=== PATIENT | female | born 1970 | race American Indian/Alaskan Native ===

== ENCOUNTER 2018-08-07 21:20 | Emergency (ER) | payer OTHER ==
--- NOTE | 2018-08-07 21:32 | Event Note ---
ED Screening Note Date of service: 08/07/18 Time: 21:27 ED Screening Note: 47 y/o female with a history of bipolar, diabetes. Has been off of her psych meds for 3-4 week. This initial assessment/diagnostic orders/clinical plan/treatment(s) is/are subject to change based on patients health status, clinical progression and re- assessment by fellow clinical providers in the ED. Further treatment and workup at subsequent clinical providers discretion. Patient/guardian urged not to elope from the ED as their condition may be serious if not clinically assessed and managed. Initial orders include:
[2018-08-07 21:59] LABS: Basophils % (Auto) 0.6 % (0.0-1.8); Eosinophils # (Auto) 0.3 K/mm3 (0.0-0.4); Eosinophils % (Auto) 4.6 % (0.0-4.3); Hematocrit 39.3 % (30.3-42.9); Hemoglobin 13.5 gm/dl (10.1-14.3); Lymphocytes # (Auto) 2.1 K/mm3 (1.2-5.4); Lymphocytes % (Auto) 36.8 % (13.4-35.0); Mean Corpuscular HGB Conc 34 % (30-34); Mean Corpuscular Volume 87 fl (79-97); Monocytes # (Auto) 0.3 K/mm3 (0.0-0.8); Monocytes % (Auto) 5.1 % (0.0-7.3); Platelet Count 268 K/mm3 (140-440); Red Blood Count 4.51 M/mm3 (3.65-5.03); Red Cell Distribution Width 13.9 % (13.2-15.2)
[2018-08-07 22:18] LABS: Bacteria,Urine 1+ /HPF (Negative); Bilirubin,Urine NEG (Negative); Blood,Urine NEG (Negative); Color,Urine Yellow (Yellow); Granular Casts,Urine 3 /LPF; Hyaline Casts,Urine 6 /LPF; Mucus,Urine 3+ /HPF; Urobilinogen,Urine < 2.0 mg/dL (<2.0)
[2018-08-07 22:20] LABS: Protein,Urine >500 mg/dL (Negative)
[2018-08-07 22:38] LABS: Amphetamine Screen,Urine PRESUMPTIVE NEGATIVE; Benzodiazepines Screen,Urine PRESUMPTIVE NEGATIVE; Cannabinoid Screen,Urine PRESUMPTIVE NEGATIVE; Cocaine Screen,Urine PRESUMPTIVE NEGATIVE; Methadone Screen,Urine PRESUMPTIVE NEGATIVE; Opiate Screen,Urine PRESUMPTIVE NEGATIVE
[2018-08-07 22:40] LABS: BUN/Creatinine Ratio 14; Blood Urea Nitrogen 10 mg/dL (7-17); Calcium 9.9 mg/dL (8.4-10.2); Hemolysis Index 10
[2018-08-07] MEDS ORDERED: HumuLIN R IV ONE (22:41)
[2018-08-07] MEDS ORDERED: NACL 0.9% 1000 ML 1,000 ML IV ONE (22:41)
--- NOTE | 2018-08-07 23:01 | Emergency Department Report ---
ED Psych HPI - General Chief Complaint: Psych Stated Complaint: MH Time Seen by Provider: 08/07/18 22:41 Source: patient Mode of arrival: Ambulatory - History of Present Illness Initial Comments: 47-year-old female with history of bipolar d/o presents to ED for mental health evaluation. Patient's mother and sister are present at bedside. Patient has no family here in [place]. Mother and sister received phone call from patient's neighbor that patient has been acting bizarrely. The has been going around taking pictures of random men at the [employer] and posting them on Facebook saying that they are engaged. Patient has also stated that she is to [employer] figures. Family reports she was hospitalized in a psych facility a few months ago, is not currently taking her medications. They feel she is a danger to herself. Pt denies SI, HI, hallucinations. -: unknown Associated Psychiatric Symptoms: delusions History of same: Yes Quality: getting worse Context: not taking psychiatric Associated Symptoms: denies other symptoms - Related Data Home Medications Medication Instructions Recorded Confirmed Last Taken buPROPion [Wellbutrin] 75 mg PO BID 08/08/18 08/09/18 Unknown metFORMIN [Glucophage] 500 mg PO BID 08/08/18 08/08/18 Unknown risperiDONE [Risperdal] 2 mg PO QHS 08/08/18 08/09/18 Unknown Allergies Allergy/AdvReac Type Severity Reaction Status Date / Time No Known Allergies Allergy Unverified 08/07/18 21:30 ED Review of Systems ROS: Stated complaint: MH Other details as noted in HPI Comment: All other systems reviewed and negative Psychiatric: other (family reports bizarre behavior and delusions). denies: auditory hallucinations, visual hallucinations, homicidal thoughts, suicidal thoughts ED Past Medical Hx - Past Medical History Hx Diabetes: Yes Hx Psychiatric Treatment: Yes (BIPOLAR,) Additional medical history: SJOGEN'S - Surgical History Past Surgical History?: No - Social History Smoking Status: Current Every Day Smoker Substance Use Type: Alcohol - Medications Home Medications: Home Medications Medication Instructions Recorded Confirmed Last Taken Type buPROPion [Wellbutrin] 75 mg PO BID 08/08/18 08/09/18 Unknown History metFORMIN [Glucophage] 500 mg PO BID 08/08/18 08/08/18 Unknown History risperiDONE [Risperdal] 2 mg PO QHS 08/08/18 08/09/18 Unknown History ED Physical Exam - General Limitations: No Limitations General appearance: alert, in no apparent distress - Head Head exam: Present: atraumatic, normocephalic - ENT ENT exam: Present: mucous membranes moist - Neck Neck exam: Present: normal inspection - Respiratory Respiratory exam: Present: normal lung sounds bilaterally. Absent: respiratory distress - Cardiovascular Cardiovascular Exam: Present: normal rhythm, tachycardia - GI/Abdominal GI/Abdominal exam: Absent: distended - Extremities Exam Extremities exam: Present: normal inspection - Neurological Exam Neurological exam: Present: alert, oriented X3 - Psychiatric Psychiatric exam: Present: normal affect, normal mood - Skin Skin exam: Present: warm, dry, intact, normal color ED Course Vital Signs 08/07/18 08/07/18 08/08/18 21:24 21:27 00:47 Temperature 98.4 F 98.4 F 98.7 F Pulse Rate 131 H 127 H 102 H Respiratory 18 18 20 Rate Blood Pressure 161/95 161/95 Blood Pressure 127/83 [Left] O2 Sat by Pulse 100 100 99 Oximetry 08/08/18 08/08/18 08/08/18 00:54 08:43 13:00 Temperature 98.7 F 98.3 F Pulse Rate 105 H 95 H Respiratory 20 18 18 Rate Blood Pressure Blood Pressure 140/87 116/72 [Left] O2 Sat by Pulse 99 97 Oximetry 08/08/18 08/09/18 08/09/18 21:50 02:25 07:41 Temperature 98.7 F 97.7 F 98.2 F Pulse Rate 87 85 89 Respiratory 18 20 18 Rate Blood Pressure Blood Pressure 134/76 135/71 117/76 [Left] O2 Sat by Pulse 100 100 100 Oximetry 08/09/18 08/09/18 08/10/18 13:57 20:22 01:00 Temperature 97.0 F L 98.8 F 98.1 F Pulse Rate 97 H 18 L 97 H Respiratory 18 18 18 Rate Blood Pressure Blood Pressure 110/77 111/65 142/95 [Left] O2 Sat by Pulse 100 100 100 Oximetry 08/10/18 09:32 Temperature 98.5 F Pulse Rate 108 H Respiratory 20 Rate Blood Pressure Blood Pressure 137/91 [Left] O2 Sat by Pulse 98 Oximetry ED Medical Decision Making - Lab Data Result diagrams: 08/07/18 21:39 08/07/18 21:39 - Medical Decision Making 47 yo F placed on 1013. Labs show glucose of 479, however pt not in DKA. IV fluids and insulin given. Repeat accucheck 198. Bactrim given for possible UTI. Pt medically clear for mental health evaluation. Will dispo per psych. - Differential Diagnosis bipolar cholo Critical care attestation.: If time is entered above; I have spent that time in minutes in the direct care of this critically ill patient, excluding procedure time. ED Disposition Clinical Impression: Bipolar disorder Disposition: [id number]/[facility]/PSY UNIT Is pt being admited?: No Condition: Stable Referrals: KELLEN FARMER MD [Referring] - 3-5 Days
[2018-08-08] MEDS ORDERED: BACTRIM DS ONE (05:05)
[2018-08-08] MEDS ORDERED: BACTRIM DS PO ONE (05:10)
[2018-08-08] MEDS ORDERED: GLUCOPHAGE PO ONE (05:58)
[2018-08-08] MEDS ORDERED: WATER FOR INJ Sterile (PF) 10 ML ONE (06:08)
[2018-08-08] MEDS: GEODON IM PRN (06:20)
[2018-08-08 09:11] LABS: HCG Qualitative,Urine Negative (Negative)
[2018-08-08] MEDS ORDERED: HABITROL TD ONE (13:17)
[2018-08-08] MEDS: BACTRIM DS PO SCH ×2 (13:46→22:28)
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
[2018-08-08] MEDS ORDERED: HumuLIN R ONE (21:22)
[2018-08-08] MEDS ORDERED: HumuLIN R SUB-Q ONE (21:23)
[2018-08-08] MEDS: TRILEPTAL PO SCH (22:28)
[2018-08-08] MEDS: ABILIFY PO SCH (22:28)
[2018-08-08] MEDS: GLUCOPHAGE PO SCH (22:28)
[2018-08-09] MEDS: GEODON IM PRN ×2 (00:47→08:08)
[2018-08-09] MEDS: GLUCOPHAGE PO SCH ×2 (08:24→19:04)
[2018-08-09] MEDS ORDERED: WELLBUTRIN XL PO SCH (10:00)
[2018-08-09] MEDS: TRILEPTAL PO SCH ×2 (10:25→22:13)
[2018-08-09] MEDS: BACTRIM DS PO SCH ×2 (10:30→22:12)
[2018-08-09] MEDS ORDERED: HumuLIN R IV ONE (12:50)
[2018-08-09] MEDS ORDERED: HumuLIN R ONE ×2 (13:03→20:53)
--- NOTE | 2018-08-09 14:40 | Progress Note ---
Subjective - Reason for Consult Consult date: 08/09/18 Reason for consult: Psychiatric Follow-up evaluation - Chief Complaint Chief complaint: "I'm a little sad today " Patient is a 47 year old female who presents to the emergency room with bizarre behavior. She has a PPHx of Bipolar. Today the patient is calm and cooperative during the assessment. She verbalizes " I'm a little sad today. I wrote a poem about the way that I feel. It's called WTF is this." Patient continues to exhibit manic symptoms. Throughout the assessment patient exhibits manic symptoms ( rapid speech, tangential thoughts, euphoric mood/mood instability, increase energy, and grandiose delusions). She reports good appetite and increase /improved sleep. She denies SI/HI's and A/VH's. Patient is medication compliant. No side effects noted/reported. Mental Status Exam - Vital signs Last Vital Signs Temp 97.0 F L 08/09/18 13:57 Pulse 97 H 08/09/18 13:57 Resp 18 08/09/18 13:57 BP 110/77 08/09/18 13:57 Pulse Ox 100 08/09/18 13:57 - Exam Narrative exam: Mental Status Exam Appearance: anxious, cooperative- green scrubs Behavior: regular eye contact Speech: rapid speech / pressured Mood: " I'm a little sad" Affect: anxious Thought Process: tangential Thought Content: denies SI/HI's and AVH's ; + grandiose delusions Motor Activity: ambulatory Cognition: A/O x 3 Insight: fair Judgment: limited Assessment and Plan Impression: PPHx Bipolar. Today the patient is cooperative but anxious during the assessment. Throughout the assessment patient exhibits manic symptoms. UDS negative. Recommendation/Plan: 1. Continue 1013. 2. Continue Abilify 5mg po QHS mood, Trileptal 150mg po BID mood, and Wellbutrin XL 150mg po QAM depression. Discussed metabolic side effects of Abilify and Tri leptal. Patient verbalizes understanding. Also discussed the possibility of increase suicidality/medication induced cholo with Wellbutrin. Patient verbalizes full understanding. 3. Will attempt to gain collateral. 4. Will consult manager social services to assist with jail. Disposition: Patient referred to inpatient psychiatric services. Will staff with Dr. Priti Ramey
[2018-08-09] MEDS ORDERED: HumuLIN R SUB-Q ONE (17:42)
[2018-08-09] MEDS: ABILIFY PO SCH (22:12)
[2018-08-10] MEDS: GLUCOPHAGE PO SCH (08:38)
[2018-08-10 09:34] VITALS: BP 137/91
[2018-08-10] MEDS: TRILEPTAL PO SCH (11:00)
[2018-08-10] MEDS: BACTRIM DS PO SCH (11:06)
[2018-08-10] MEDS ORDERED: GLUCOPHAGE PO SCH (13:00)
[2018-08-10] MEDS ORDERED: LANTUS SUB-Q SCH (22:00)
== END 2018-08-10 12:30 ==
LOC: EEVIPCON 21:20 → ED 21:20
DX: F31.9 Bipolar disorder, unspecified (principal); E11.9 Type 2 diabetes mellitus without complications; F17.200 Nicotine dependence, unspecified, uncomplicated; Z79.84 Long term (current) use of oral hypoglycemic drugs
CPT/HCPCS: 36415; 80048; 80307; 81001; 81025; 82962; 85025; 87086; 96372; 96374; 96376; 99285; G0480; J3486; J7030; 80320; J1815